=== PATIENT | male | born 2000 | race Two or more races ===

== ENCOUNTER 2022-04-04 19:18 | Emergency (ER) | payer OTHER, SELFPAY ==
[2022-04-04 19:53] VITALS: BP 129/76; PULSE 84; RESP 18; TEMP 37.1; O2SAT 98; BMI 25.8
--- NOTE | 2022-04-04 19:58 | XR_ITS ---
Patient: LESLIE SMART Facility:?[facility] Patient ID:?[id number] Site Patient ID:?[id number]. Site :?[id number] Study:?XRay-Extremity Left ANKLE 3V-04/04/2022 8:13:40 PM Ordering Physician:?Tayla Dyer Final Report: INDICATION: Trauma/swelling TECHNIQUE: Three views of the left ankle COMPARISON: None FINDINGS: Bones and joints: There is a fracture of the distal fibular metaphysis. There is slight widening of the medial tibiotalar joint space suggesting intra-articular fracture. Soft tissues: Diffuse soft tissue swelling IMPRESSION: Fracture of the distal fibular metaphysis and slight widening of the medial tibiotalar joint space suggesting intra-articular fracture. Dictated by Freddie Kirkpatrick MD @ 04/04/2022 8:35:47 PM Signed by:?Freddie Kirkpatrick MD @04/04/2022 8:35:47 PM (Electronic Signature)
--- NOTE | 2022-04-04 20:11 | ED_ITS ---
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 injured his left ankle. Kept apparently hole and twisted his ankle, he has got swelling on the medial and lateral aspect of his ankle. He he has had some minor sprains in the past playing basketball but nothing recently. He is generally quite healthy. Not on any blood thinners. He has had really limited range of motion of his ankle. Review of Systems Status of ROS: Reports: 6 or more systems reviewed and unremarkable except as noted in History and below PFSH PFS Social History Smoking Status: Never smoker Exam Narrative: Exam Narrative: Objective: Patient is alert orient x3 in no distress Vital signs unremarkable Left lower extremity shows a swollen ankle medial laterally is tender both sides most on the lateral aspect of his ankle, no crepitus, is able to flex extend his ankle a little bit but not much. He has got good distal CMS, no open wounds good distal see perfusion as mention. Const: Vital Signs, click to edit/add: Vital Signs - 24 hr 04/04/22 19:53 Temperature 98.8 F Pulse Rate [Left P ulse Oximeter] 84 Respiratory Rate 18 Blood Pressure [Ri ght Upper Arm] 129/76 Pulse Oximetry 98 Oxygen Delivery Me thod Room Air Course Vital Signs Vital signs: Initial Vital Signs Temperature 98.8 F 04/04/22 19:53 Temperature Source Temporal Artery Scan 04/04/22 19:53 Pulse Rate 84 04/04/22 19:53 Respiratory Rate 18 04/04/22 19:53 Blood Pressure 129/76 04/04/22 19:53 Blood Pressure Mean 93 04/04/22 19:53 Blood Pressure Position Sitting 04/04/22 19:53 Pulse Oximetry 98 04/04/22 19:53 Oxygen Delivery Method 04/04/22 19:53 Vital Signs Temperature 98.8 F 04/04/22 19:53 Pulse Rate 84 11/13/22 19:53 Respiratory Rate 18 04/04/22 19:53 Blood Pressure 129/76 04/04/22 19:53 Pulse Oximetry 98 04/04/22 19:53 Oxygen Delivery Method 04/04/22 19:53 Temperature 98.8 F 04/04/22 19:53 Pulse Rate 84 04/04/22 19:53 Respiratory Rate 18 04/04/22 19:53 Blood Pressure 129/76 04/04/22 19:53 Pulse Oximetry 98 04/04/22 19:53 Oxygen Delivery Method 04/04/22 19:53 Medical Decision Making MDM Narrative Medical decision making narrative: Patient got a significant left ankle sprain, will get an x-ray of his ankle, he has crutches from the school. He took some ibuprofen as well. Disposition pending x-ray findings Addendum: The patient has a distal fibular fracture with ankle mortise widening. I am going to put him in a cam walker, nonweightbearing, crutches, and have him follow up with Orthopedics in the next couple of days, Advil as needed for discomfort, he can use Tylenol as well, keep the splint on steadily. Patient be off school for 2 days no written, he will be on a Cam walker but not walking and weight-bearing just for splint, and will have him use ibuprofen or Aleve, orthopedic followup will make for him in the next 2 days. Crutch walking. Discharge Plan Discharge Clinical Impression: Ankle sprain and strain, Ankle fracture Patient Disposition: Home w/ Parent or Adult Condition: Stable Additional Instructions: Ortho appointment the next 2-3 days, continue crutches, nonweightbearing on the left lower extremity, will give a Cam walker for compression and splinting, Advil as needed, Tylenol as needed, return to ED sooner problems or concerns. Will give the orthopedic number for the patient Ortho number- [phone] Activity Detail: Nonweightbearing left lower extremity Discharge Diet: Regular Stand Alone Forms: [facility] Info Instructions
== END 2022-04-04 20:58 | disposition home or self-care (01) ==
LOC: ED 20:25
PROVIDERS: Emergency Provider Family Medicine
DX: S93.402A Sprain of unspecified ligament of left ankle, initial encounter (principal); X50.1XXA Overexertion from prolonged static or awkward postures, initial encounter
CPT/HCPCS: 73610; 99283

== ENCOUNTER 2022-04-14 08:09 | Day surgery (SDC) | payer OTHER, SELFPAY ==
[2022-04-14] VITALS (17 sets, daily range): BP systolic 92–118; BP diastolic 42–76; PULSE 51–71; RESP 14–16; TEMP 36.3–37.1; O2SAT 96–100; BMI 25.7
[2022-04-14] MEDS: LACTATED RINGERS 1000 ML 1,000 ML 100 ML IV (08:45)
[2022-04-14] MEDS: SODIUM CHLORIDE 0.9 % (FLUSH) 10 ML SYRINGE IVF (08:45)
--- NOTE | 2022-04-14 09:01 | SUR.PREOP ---
HOME COVID ANTIGEN TEST NEGATIVE ON 04/13/22.
[2022-04-14] MEDS: MIDAZOLAM HCL 1 MG/ML inj IVP (09:05)
[2022-04-14] MEDS: fentaNYL 100 MCG/2 ML inj IVP (09:05)
--- NOTE | 2022-04-14 09:09 | SUR.PREOP ---
TIME?OUT:?904 PT/RN/HAILY SANDWICH MACHINE OPERATOR?VERIFICATION?OF?SURGICAL?SITE,?PROCEDURE,?AND?CONSENT OBTAINED?PRIOR?TO?INVASIVE?PROCEDURE.
--- NOTE | 2022-04-14 09:23 | W.PM.NB ---
Nerve Block Nerve Block Time Seen by Provider: 09:20 Date Seen: 04/14/22 Type of block requested by surgeon for post-operative analgesia: popliteal Side: left Time out performed: Yes Verification of patient name: Yes Verification of date of : Yes Site marking: site marked Name of person performing procedure: hola rodriguez Assistants, if any: ALYSSA RN Continuous monitoring Was continuous monitoring of O2 sat, B/P, telemetry monitor, recorded every 15 minutes?: Yes Procedure Checklist: sterile prep, needles and gloves Ultrasound guided. Images saved: Yes Medications given in 5ml increments after negative aspiration: Ropivicaine %: 0.5 mL: 20 Patient tolerated procedure well: Yes Block Charges Block Charge (with Pro Fee): Sciatic Nerve Use of Ultrasound Machine for Block: Yes- US Guidance/pain block
--- NOTE | 2022-04-14 10:00 | CRLHL7_ITS ---
For Patients: As a result of the Cures Act, medical imaging exams and procedure reports are released immediately into your electronic medical record. You may view this report before your referring provider. If you have questions, please contact your health care provider. Indication: Intra OP ORIF Technique: Three fluoroscopic images left ankle. Fluoroscopic time 2 minutes 11.4 seconds. IMPRESSION: Fluoroscopic guidance for open reduction internal fixation distal fibular fracture and fixation across the syndesmosis. Dictated by Honorio Snyder MD @ 04/14/2022 12:44:47 PM (Electronically Signed)
[2022-04-14] MEDS: CEFAZOLIN 2 GM in 0.9 % SODIUM CHLORIDE Mini-bag 100 ML IVPB (10:05)
--- NOTE | 2022-04-14 12:18 | P.ORPRC_ITS ---
Procedure Note Date of procedure: 04/14/22 Procedure: PREOPERATIVE DIAGNOSES: 1. Left ankle lateral malleolus fracture, closed, acute (bimalleolar equivalent) POSTOPERATIVE DIAGNOSES: 1. Left ankle lateral malleolus fracture, closed, acute (bimalleolar equivalent) 2. Left ankle syndesmosis disruption/injury, acute, closed NAME OF OPERATION: 1. Left ankle lateral malleolus open reduction with internal fixation (fibullock) 2. Left ankle syndesmosis fixation/stabilization 3. 40145 - intraoperative fluoroscopy up to 1 hour. SURGEON: Efrain Waller MD SHAPER MACHINE HAND: Jai BIGGS; Of note, an virtual assistant for advertisers was critical for this case to aide in patient positioning, leg manipulation, tissue retraction, closure, & splinting. ANESTHESIA: Regional block plus MAC anesthetic. EBL: 20 mL IMPLANTS: Arthrex fibulock 3.0 mm distal fibular intramedullary nail with 3.0 mm cortical nonlocking screws distally (total of 2 screws) and an end cap. Syndesmosis tight rope 0 (knotless) also utilized TOURNIQUET: 56 minutes at 300 torr INDICATIONS: The patient is a pleasant 22-year-old male who sustained a left ankle injury in the recent past with difficulty bearing weight. Workup included xrays which revealed an unstable ankle fracture as noted above. Given these findings, surgery was recommended to stablize the ankle. FINDINGS: Closed, comminuted, displaced lateral malleolus fractures with good bone quality. There was edematous tissue throughout the ankle which was moderate. There was interposed bone and periosteum affecting the reduction initially. Once cleared, the reduction could be improved. The syndesmosis was found to be unstable after stabilizing the lateral malleolus and thus syndesmosis fixation was performed. PROCEDURE: Following a thorough discussion of risks, benefits, and alternatives, consent was obtained and the left ankle was marked. The patient was brought to the operating room and placed supine on the operating table. Induction of anesthesia was undertaken. Appropriate time out was performed identifying proper patient, site and procedure. 2 g IV Ancef was administered within 1 hour of incision preoperatively. The left lower extremity was prepped and draped in the appropriate sterile fashion using ChloraPrep. The limb was exsanguinated and the tourniquet inflated. Initially, a lateral x-ray helped us with the general alignment of where the guide pin would track. This was drawn on the skin for future reference. We then entered the distal fibula with a guide pin at the fibular tip according to the technique guide. It was passed into the fibula and after confirming on both AP and lateral fluoroscopic images, it was found to pass up the fibula approximately 130+ mm. The fracture was held reduced with both fingers and clamps throughout the reaming to maintain its reduced position. The distal portion of the fibula was then reamed with the opening Reamer, followed by the 3.2 mm Reamer up the fibular diaphysis. The canal was very tight, and thus we progressed slowly and in the toggle fashion so as not to break through the fibula. After proper reaming, the nail was placed. The proximal fins were engaged with the torque limiting screwdriver. Distal interlocking screws were then placed from lateral to medial being cautious not to allow them to penetrate the medial fibular cortex. These had excellent purchase and were necessary given her frail bone quality. Finally, the end cap was placed and confirmed on AP and lateral views to be in appropriate position. After confirming appropriate reduction/positioning on C-arm fluoroscopic imaging, the ankle was tested for syndesmosis stability. External rotation was performed. This showed the syndesmosis to be disrupted/medial clear space widening. As such, the syndesmosis knotless tight rope device was utilized. A guide pin placed, drilled, and the buttons past. This was opposed against bone after clearing some periosteum medially. The mechanism engaged and good stabilization of the syndesmosis achieved which was confirmed with fluoroscopic imaging. At this stage, the wound was thoroughly irrigated with normal saline. Closure was performed with 3-0 / 4-0 Vicryl and monocryl, respectively for subcutaneous and subcuticular closure. Dressings were applied and a sugar-tong splint was applied. The patient was awoken from anesthesia and transferred to the PACU in stable condition. PLAN: 1. Elevate operative extremity. 2. Encouraged ice. 3. Percocet for pain as needed. 4. Follow up with PA visit in 2-3 weeks for wound check and splint removal. Transition to CAM boot. Advance weight-bearing slowly over the next 1-2 weeks as tolerated 5. Toe-touch weight-bearing operative lower extremity
--- NOTE | 2022-04-14 12:56 | W.ANESCHARGE ---
Anesthesia Charges Start Date/Time Anesthesia Start Date: 04/14/22 Anesthesia Start Time: 09:51 Stop Date/Time Anesthesia Stop Date: 04/14/22 Anesthesia Stop Time: 12:52 Summary Emergency: No
[2022-04-14] MEDS: OxyCODONE/APAP 5-325 TABLET 1 TAB PO (14:00)
== END 2022-04-14 14:17 | disposition home or self-care (01) ==
PROVIDERS: Visit Provider Orthopaedic Surgery Sports Medicine
PROC: (CPT 27792; principal; 2022-04-14 10:00)
DX: S82.62XA Displaced fracture of lateral malleolus of left fibula, initial encounter for closed fracture (principal); S93.432A Sprain of tibiofibular ligament of left ankle, initial encounter
CPT/HCPCS: 27792; 27829; 01480; 64445; 73610; 76000; 76942; A9270; C1713; C1776; J0690; J1100; J2250; J2400; J2405; J2704; J2795; J3010; J7120

== ENCOUNTER 2022-05-10 10:40 | Outpatient (CLI) | payer OTHER, SELFPAY | END 2022-05-10 10:41 | disposition home or self-care (01) | LOC: NFLDREF 05-11 09:56 | PROVIDERS: Visit Provider Physician Assistant Surgical | DX: T81.49XA Infection following a procedure, other surgical site, initial encounter (principal) | CPT/HCPCS: 87076; 87181; 87186; 87205 ==

== ENCOUNTER 2022-05-26 12:46 | Day surgery (SDC) | payer OTHER, SELFPAY ==
[2022-05-26] VITALS (11 sets, daily range): BP systolic 87–122; BP diastolic 41–99; PULSE 51–82; RESP 12–16; TEMP 36.3–37.2; O2SAT 97–100; BMI 27.1
[2022-05-26] MEDS: LACTATED RINGERS 1000 ML 1,000 ML 100 ML IV (12:57)
[2022-05-26] MEDS: SODIUM CHLORIDE 0.9 % (FLUSH) 10 ML SYRINGE IVF (12:57)
--- NOTE | 2022-05-26 14:08 | CRLHL7_ITS ---
For Patients: As a result of the Cures Act, medical imaging exams and procedure reports are released immediately into your electronic medical record. You may view this report before your referring provider. If you have questions, please contact your health care provider. Indication: Intra-op Left ankle incision and drainage, hardware exchange Technique: Two fluoroscopic images of the left ankle. Fluoroscopic time 11.2 seconds. IMPRESSION: Fluoroscopic guidance for orthopedic surgery left ankle. Dictated by Honorio Snyder MD @ 05/27/2022 1:46:20 PM (Electronically Signed)
[2022-05-26] MEDS: CEFAZOLIN 2 GM in 0.9 % SODIUM CHLORIDE Mini-bag 100 ML IVPB (14:25)
--- NOTE | 2022-05-26 15:44 | W.ANESCHARGE ---
Anesthesia Charges Start Date/Time Anesthesia Start Date: 05/26/22 Anesthesia Start Time: 14:17 Stop Date/Time Anesthesia Stop Date: 05/26/22 Anesthesia Stop Time: 15:42 Summary Emergency: No
--- NOTE | 2022-05-26 16:07 | PM.ORPRC ---
Procedure Note Date of procedure: 05/26/22 Procedure: PREOPERATIVE DIAGNOSES: 1. Left ankle loose fibula lock lateral malleolus screw that is backing out 2. Left ankle superficial wound breakdown (1 x 2 cm region of the distal ankle incision) POSTOPERATIVE DIAGNOSES: 1. Left ankle loose fibula lock lateral malleolus screw that is backing out 2. Left ankle wound dehiscence (1 x 2 cm region of the distal ankle incision) NAME OF OPERATION: 1. Left ankle screw exchange (removal of backing out screw and replacement with slightly longer 3.0 mm cortical screw) 2. Left ankle irrigation and debridement including debridement of skin, subcutaneous tissue, and deep fascia 3. Wound closure of wound dehiscence with nylon suture 4. 61660 - intraoperative fluoroscopy up to 1 hour. SURGEON: Efrain Waller MD GAS TURBINE ASSEMBLER: Jai BIGGS; Of note, an conference assistant was critical for this case to aide in patient positioning, leg manipulation, tissue retraction, closure, & splinting. ANESTHESIA: Spinal anesthetic EBL: Less than 10 mL IMPLANTS: Arthrex 3.0 mm interfragmentary screw exchange (removed the current screw that was backing out and replaced it with a slightly longer screw with good bone purchase along medial distal fibula) TOURNIQUET: Less than 30 minutes at 300 torr INDICATIONS: The patient is a pleasant 22-year-old male who sustained a left ankle injury 03/2022. He underwent ORIF by me at that time with syndesmosis fixation. In the postoperative time, the distal portion of the wound has dehisced. There was some mild drainage. This is being managed with local wound care and oral antibiotics. He returned to my clinic yesterday where the wound breakdown measured approximately 1 x 2 cm. In addition, x-rays revealed the distal traversing fibular lock screw had started to back out. Given these findings, it was recommended to debride the wound, removed the backing out screw and exchange it for longer 1, and close the wound. FINDINGS: No purulence was encountered. No sinus tracts were encountered. Some of the tissue was fibrin this across the open 1 x 2 cm region of the distal incision. We did extend this incision more proximally for access to the screw that was backing out as well as to ensure that there is no further infectious abscess pockets further up. PROCEDURE: Following a thorough discussion of risks, benefits, and alternatives, consent was obtained and the left ankle was marked. The patient was brought to the operating room and placed supine on the operating table. Induction of anesthesia was undertaken. Appropriate time out was performed identifying proper patient, site and procedure. 900 mg IV clindamycin was administered within 1 hour of incision preoperatively. The left lower extremity was prepped and draped in the appropriate sterile fashion using ChloraPrep. The limb was exsanguinated and the tourniquet inflated. The previous wound dehiscence was debrided with a Ray-Salomón. We then identified with C-arm fluoroscopic imaging where the screw was backing out. This was for the proximal along the incision. Thus, the incision was extended proximally. We were able to remove the screw to fully and eventually replaced it with a screw that was slightly longer (3.0 mm). However, prior to screw placement, sharp debridement of skin, subcutaneous tissue, and deep fascia was performed with a curette and rongeur. We also performed is bluntly with the Ray-Salomón. Probing of the tissues revealed no sinus tracts nor any purulent pockets or abscess pockets. Thorough irrigation normal saline was performed using a total of 4 L. This was done in stages with debridement using a fresh curette in between irrigation rounds. At this stage, C-arm confirmed our drill bit to extend to the medial border of the distal fibula. An 18 mm in length 3.0 mm screw was then placed with excellent purchase into the further medial distal fibula. Finally, the finishing irrigation with normal saline was performed and vancomycin powder was utilized to create a paste to place in the wound as well to help minimize development of infection. At this stage, closure was performed with 3-0 nylon in interrupted vertical mattress fashion. Dressing was applied. The patient was awoken from anesthesia and transferred to the PACU in stable condition. PLAN: 1. Elevate operative extremity. 2. Encouraged ice. 3. Percocet for pain as needed. 4. Follow up with me in approximately 12-14 days for suture removal. 5. Weightbear as tolerated operative lower extremity. Would suggest using a Cam boot when outdoors or on slippery terrain. I come out of this when in a safe, stable environment. 6. Complete 7 day course of p.o. Bactrim DS
== END 2022-05-26 16:55 | disposition home or self-care (01) ==
PROVIDERS: Visit Provider Orthopaedic Surgery Sports Medicine
PROC: (CPT 20680; principal; 2022-05-26 13:15)
DX: T84.127A Displacement of internal fixation device of bone of left lower leg, initial encounter (principal); T81.31XA Disruption of external operation (surgical) wound, not elsewhere classified, initial encounter
CPT/HCPCS: 20680; 11043; 01480; 73600; C1713; J0690; J2250; J2400; J2405; J2704; J3010; J3370; J7120